=== PATIENT | male | born 1955 | race Caucasian/White ===

== ENCOUNTER → 2016-10-27 | Outpatient (CLI) | payer BC, OTHER ==
[~2016-10-27] VITALS: Ht 177.8 cm; Wt 97.5 kg
[~2016-10-27] MED LIST: ASPIR 8181 MG PO; CRESTOR10 MG PO; FLOMAX PO; NEURONTIN 300300 M1 PO; PERCOCET 5-3251 EACH PO; PHENERGAN25 MG RE
--- NOTE | ~2016-10-27 | HPC ---
[facility] [place] [address] PAIN MANAGEMENT CONSULTATION Name: AURELIA MOHR Room #: REG DELMY Tillman#: [id number] Admission: 10/27/16 Attend Phys: Antoni Silva DO Discharge: Date of : 59 Report #: [id number] THIS REPORT FOR: //name// CC: Peter Silva DATE OF SERVICE: 10/27/2016 The patient is a very pleasant 61-year-old gentleman seen in consultation at request of Dr. Swapna Cage DPM for evaluation and assistance with management of pain in left ankle. The patient notes that he developed pain in his left foot last summer. Progressed to have surgery 08/07/2016 (bunionectomy with soft tissue correction and osteotomy of the first metatarsal). While surgical site has healed nicely, he is left with fairly significant "nerve pain" medial aspect of the foot and ankle. Weightbearing is okay, but he has light touch allodynia and hyperpathia about the medial aspect and dorsum of the left foot. He describes steady, periodic, burning, shooting, throbbing, sharp pain, he rates anywhere from 4-8 on a 0-10 visual analog scale. Currently, he is wearing an orthotic device, a Velcro shoe as shoes encompassing the distal aspect of his foot significantly exacerbate pain. He notes the pain is exacerbated with any and all activity or contact on his foot. He notes he gets some relief with elevation of the foot and using a topical compound. The patient incidentally notes that he had had prior surgery for similar issue on the right foot in 2003 with no sequelae. REVIEW OF SYSTEMS: Complete review of systems attached to chart and gone over with the patient. He is . Does not smoke or drink alcohol to excess. History of dyslipidemia for which he has been prescribed rosuvastatin. He has had a history of renal lithiasis, was on Flomax for a short period, though he is not on it presently. Aforementioned foot surgery as noted above along with the left inguinal herniorrhaphy in 1967. 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 He has continued to work despite pain and has to travel at the end of this week. Pain impact score averages 24/70. PHYSICAL EXAMINATION: Reveals a 5-foot 10-inch, 215-pound gentleman, BMI is 30.8 kilograms per meter squared. Blood pressure is 141/83, pulse 78, respirations 16. Cranial nerves 2-12 are grossly intact. Pupils equal, reactive to light and accommodation. Extraocular muscles are intact. There is no nystagmus or lateral gaze deviation. Thyroid is modestly enlarged, no nodules are noted. Cervical range of motion is full. Upper extremity strength is preserved. Heart is regular and rhythmical without murmur. Lungs are clear [address] [address] PAIN MANAGEMENT CONSULTATION Name: AURELIA MOHR Room #: REG [facility] Layne#: [id number] Admission: 10/27/16 Attend Phys: Antoni Silva DO Discharge: Date of : 59 Report #: [id number] to auscultation. Abdomen is unremarkable. Rises from chair using armrest. Has a modestly antalgic gait favoring the left foot. Lower extremity strength to hip flexion, lower extremity extension and dorsiflexion, plantarflexion is all good, though he has pain with resistance and dorsiflexion on the left side. He has a well healed surgical scar over the dorsum of the left proximal metatarsal-tarsal joint. Does have hyperpathia, allodynia dorsum of the foot, medial aspect going up to the ankle. Peripheral pulses are faint but present. Capillary bautista is good. The skin integument feels warm. It is pink. No obvious infection, erythema, rubor or swelling is noted. Limited range of motion in the joint as expected status post prior surgery. Selective hyperpathia and allodynia is noted. Homans is negative. ASSESSMENT: Neuropathic pain, left lower extremity status post left bunionectomy with soft tissue correction, osteotomy of the first metatarsal in an otherwise healthy 61-year-old. RECOMMENDATION: Long discussion today about therapeutic options. Appears to have neuropathic pain component. We have elected to start a calcium channel membrane stabilizing agent (gabapentin 300 mg at bedtime, titrating a dose up to 1 tablet in the morning and 2 at night, total daily dose of 900 mg). We will see patient back in 3 weeks for reevaluation. We briefly discussed consideration for lumbar sympathetic block on the off chance that this could represent somewhat atypical presentation of CRPS. Hopefully, simply neuropathic pain due to local nerve irritation and may consider adding a sodium channel membrane stabilizing agent (Tegretol? Trileptal?). Thank you for allowing me to participate in the patient's care. I will keep you abreast of his progress. By: 1129 [id number] Antoni Silva, DO /nt
[2016-10-27 08:56] VITALS: BP 141/83
== END | disposition home or self-care (01) ==
LOC: PAIN 06:48
DX: M79.662 Pain in left lower leg (principal); Z98.890 Other specified postprocedural states

== ENCOUNTER → 2016-11-21 | Outpatient (CLI) | payer BC, OTHER ==
[~2016-11-21] VITALS: Ht 177.8 cm; Wt 98.9 kg
[~2016-11-21] MED LIST changes: +HYDROCODONE-APA1 TA1 PO
--- NOTE | ~2016-11-21 | HPC ---
[facility] [place] [address] PAIN MANAGEMENT CONSULTATION Name: AURELIA MOHR Room #: REG DELMY Layne#: [id number] Admission: 11/21/16 Attend Phys: Antoni Silva DO Discharge: Date of : 59 Report #: [id number] THIS REPORT FOR: //name// CC: Peter Silva SUBJECTIVE: The patient is a very unfortunate 61-year-old gentleman referred by Dr. Ramon Cage for left ankle pain, neuropathic pain component, RSD/CRPS type pain. Seen 1 time, 10/27/2016, started the patient on gabapentin. We talked about a lumbar sympathetic block. I have spoken to Dr. Cage in the interim. Dr. Cage was concerned that he does have some either deeper peroneal nerve mononeuropathy versus sympathetically mediated pain. Returns to pain clinic today, noting pain remains problematic. He notes that he has burning dysesthesia in the left ankle and foot radiating up to about mid-benton. Describes burning, shooting, throbbing sensation. He is unable to wear a foot due to swelling and light touch allodynia. PHYSICAL EXAMINATION: Otherwise unchanged from presentation. GENERAL: A 61-year-old gentleman with BMI noted on EMR. VITAL SIGNS: Stable. EXTREMITIES: Lower extremity strength is good down to the left knee. Dorsiflexion, plantar flexion is modestly limited with exacerbation of pain. Light touch allodynia and hyperpathia from about the mid lower leg down on the left side. Pulses are good. ASSESSMENT: Left ankle pain, neuropathic pain, complex regional pain syndrome requiring complex medication management. RECOMMENDATION: Long discussion with the patient today about therapeutic options. 1. Lumbar sympathetic block under fluoroscopy today. 2. Continue gabapentin, I did offer the patient prescription for hydrocodone 7.5/325, limit 30 tablets, direction one tablet q.4-6 hours as needed for pain. The patient cautioned about daytime somnolence, mental acuity changes, constipation. 3. Follow up in 1 week. If he gets good incremental relief, we can consider repeating the injection. If he gets only transient relief, we may consider addition of a sodium channel membrane stabilizing agent (Trileptal?) as a synergistic agent with the gabapentin. Thank you for allowing me to participate in the patient's care. He does require complex medication management for a rather significant pain component. ASSESSMENT: Complex regional pain syndrome, left lower extremity. [address] [address] PAIN MANAGEMENT CONSULTATION Name: AURELIA MOHR Room #: REG CLI Layne#: [id number] Admission: 11/21/16 Attend Phys: Antoni Silva DO Discharge: Date of : 59 Report #: [id number] PROCEDURE: Lumbar sympathetic block under fluoroscopy. DESCRIPTION OF PROCEDURE: After written informed consent was obtained, the patient was taken to the fluoroscopy suite, placed in prone position. After sterile prep and drape, a skin wheal with lidocaine was raised. A 22-gauge 6-inch Chiba needle was placed from a left paramedian approach to contact the mid portion of L2 vertebral body in the left. Under triplanar fluoroscopy, the needle was then gently advanced to position slightly anterior to the anterior-most portion of the vertebral body. AP and lateral projections showed the needle to be located about the left lateral third of the AP projection. Negative aspiration was accomplished. Then, 1 mL of Omnipaque was injected, which showed spread within the sympathetic gutter. This was followed with 4 mL of 0.5% preservative-free bupivacaine plus 4 mL of 1.5% preservative-free Xylocaine with 1:200,000 epinephrine plus 40 mg triamcinolone. Needle was removed. The area was cleansed, Band-Aids applied. The patient monitored for an appropriate period of time, discharged in good and stable condition, noting some incremental improvement in his baseline pain. <ELECTRONICALLY SIGNED> By: Antoni Silva DO 11/26/16 0758 1227 Antoni Silva DO /nt
[2016-11-21 08:53] VITALS: BP 133/74
== END ==
LOC: PAIN 07:00
DX: G90.522 Complex regional pain syndrome I of left lower limb (principal)

== ENCOUNTER → 2016-11-28 | Outpatient (CLI) | payer BC, OTHER ==
[~2016-11-28] VITALS: Ht 177.8 cm; Wt 98.7 kg
[~2016-11-28] MED LIST changes: +TRILEPTAL150 MG PO
--- NOTE | ~2016-11-28 | HPC ---
[facility] [place] [address] PAIN MANAGEMENT CONSULTATION Name: AURELIA MOHR Room #: REG DELMY Layne#: [id number] Admission: 11/28/16 Attend Phys: Antoni Silva DO Discharge: Date of : 59 Report #: [id number] THIS REPORT FOR: //name// CC: Peter Silva HISTORY OF PRESENT ILLNESS: The patient is a pleasant 61-year-old gentleman referred by Dr. Muller for left ankle neuropathic pain. He was initially seen 10/27/2016. He was started on gabapentin. Follows up 11/21/2016 with ongoing neuropathic pain. Long discussion at that time. We proceeded with a lumbar sympathetic block. Continue gabapentin, unchanged. I did provide a short course of hydrocodone 7.5/325, limit 30 tablets with directions to be used 1 q. 4-6 hours. He has used about 5 tablets in the interval since we last saw him. He notes dramatic improvement following the sympathetic block, notes about 75% improvement for 2-3 days. Clearly, this points to a component of sympathetically mediated pain. He returns to the pain clinic today. Again, we had a prolonged visit from 10:15-10:40. He is still wearing surgical shoe on the left side. He states when he tries to wear a "regular shoe" has increasing pain. He has had some swelling, but this seems to be coming down. He has a tingling sensation in the foot, exacerbated with standing coming up the calf to the knee. States he has a feeling of "swelling" in the lower extremities though there is no swelling perceptible. Rates pain at 2-3 on a 0-10 visual analog scale. Describes throbbing, sharp, aching, burning pain that is exacerbated with any or all activity. PHYSICAL EXAMINATION: Was unchanged, 61-year-old gentleman, BMI is 31.2 kilograms per meter squared. Vital signs stable as noted on the EMR. Does not use tobacco products. Again, he is wearing the Velcro flat soled surgical shoe on the left foot. He does have normal 2-point discrimination in the lower leg that is symmetric. Range of motion of the left ankle is modestly limited. Subjective pain in the foot. There is no ballottable edema or swelling is noted. Mild hyperpathia and allodynia. ASSESSMENT: Neuropathic pain, CRPS type 2, left lower extremity. RECOMMENDATION: Long discussion with the patient today about therapeutic options. He would benefit from a repeat lumbar sympathetic block, the treatment algorithm for CRPS typically includes a series of lumbar sympathetic blocks in short order, i.e. every 3-4 days. Often times, there is a significant incremental relief obtained long-term with this. Nevro; however, has a generic policy noting "no more than one injection in any 30-day period." We will seek an authorization from [employer] [facility] to repeat the injection earlier as warranted. [address] [address] PAIN MANAGEMENT CONSULTATION Name: AURELIA MOHR Room #: REG DELMY Tillman#: [id number] Admission: 11/28/16 Attend Phys: Antoni Silva DO Discharge: Date of : 59 Report #: [id number] Today, however, we elected to continue gabapentin, strongly encouraged range of motion activity. I provided the patient with a prescription for Trileptal 150 mg to start if pain increases with increasing physical activity. A 150 mg tablets, dispensed 90, directions one at bedtime for 2 nights, two at bedtime for 2 nights with a target dose of 1 in the morning and 2 at night, concurrent with his gabapentin. We will make an appointment to see the patient back for consideration for repeat lumbar sympathetic block at earliest possible date. <ELECTRONICALLY SIGNED> By: Antoni Silva DO 12/01/16 1118 1156 [id number] Antoni Silva DO /nt
[2016-11-28 10:14] VITALS: BP 141/74
== END | disposition home or self-care (01) ==
LOC: PAIN 05:45
DX: G90.522 Complex regional pain syndrome I of left lower limb (principal)

== ENCOUNTER → 2016-12-22 | Outpatient (CLI) | payer BC, OTHER ==
[~2016-12-22] VITALS: Ht 177.8 cm; Wt 97.6 kg
--- NOTE | ~2016-12-22 | HPC ---
[facility] [place] [address] PAIN MANAGEMENT CONSULTATION Name: AURELIA MOHR Room #: REG SIMONHortencia Tillman#: [id number] Admission: 12/22/16 Attend Phys: Antoni Silva DO Discharge: Date of : 59 Report #: [id number] THIS REPORT FOR: //name// CC: Peter Silva DATE OF SERVICE: 12/22/2016 HISTORY: The patient is a 61-year-old gentleman initially seen in consultation on 10/27/2016, diagnosed with left lower extremity neuropathic pain, possible component of CRPS. The patient was given a lumbar sympathetic block at presentation with good yet transient relief of symptoms. Started the patient on membrane stabilizing agents, titrating gabapentin 300 mg up to 1 in the morning and 2 at night and recently started a sodium channel membrane stabilizing agent, Trileptal, titrating 150 mg tablet up to 1 in the morning and 2 at night. He just started 1 in the morning this week. He returns to Pain Clinic today noting left foot still feels swollen. He has been riding a stationary bike once or twice a week. He does cut his lawn weekly; however he still has to wear "flip flops," as trying to get his left foot into his shoe is difficult. There is some osseous hypertrophy about the medial aspect of the distal foot, primarily at the great toe metatarsal tarsal junction. Flexion and extension is limited. However, he is a little better with dorsiflexion which before had caused extensive exacerbation of pain. He rates his pain at 2-3 on a 0-10 visual analog scale. Skin is generally intact. The nail is black (the patient stubbed his toe about 4 weeks ago). Skin, integument is generally intact. ASSESSMENT: Neuropathic pain, left lower extremity, component of complex regional pain syndrome. RECOMMENDATIONS: I had discussion with the patient today about therapeutic options. Suggested that he continue to take the Trileptal and gabapentin tablets 1 in the morning and 2 at night for each throughout the summer and then we will start weaning the tablets down in 2-3 months. If symptoms continue, we will consider repeat lumbar sympathetic block in consideration for moving forward with spinal cord stimulator trial. Presently, however, no interventional therapy is required. He seems to be improving. He has a followup appointment with Dr. Meyers, I believe later this week. I will be happy to see him on an as needed basis. <ELECTRONICALLY SIGNED> By: Antoni Silva DO 12/24/16 1252 [id number] [id number] Antoni Silva DO /nt
[2016-12-22 11:04] VITALS: BP 145/85
== END ==
LOC: PAIN 06:43
DX: G62.9 Polyneuropathy, unspecified (principal); M19.042 Primary osteoarthritis, left hand; M19.041 Primary osteoarthritis, right hand; M19.012 Primary osteoarthritis, left shoulder; M19.011 Primary osteoarthritis, right shoulder; Z79.899 Other long term (current) drug therapy

== ENCOUNTER → 2017-04-09 | Outpatient (CLI) | payer BC, OTHER ==
[~2017-04-09] VITALS: Ht 177.8 cm; Wt 99.4 kg
[~2017-04-09] MED LIST changes: +NORCO 7.5-3251 EACH PO
--- NOTE | ~2017-04-09 | HPC ---
[facility] [place] [address] PAIN MANAGEMENT CONSULTATION Name: AURELIA MOHR Room #: REG DELMY Tillman#: [id number] Admission: 04/09/17 Attend Phys: Antoni Silva DO Discharge: Date of : 59 Report #: [id number] THIS REPORT FOR: //name// CC: Peter Silva HISTORY OF PRESENT ILLNESS: The patient is a pleasant 61-year-old gentleman suffering with left lower extremity neuropathic pain, CRPS, requiring high-risk complex medication management. The patient was initially seen in our clinic on 10/27/2016. He had surgery on his foot on 08/07/2016. Surgery ostensibly healed nicely, but he is left with ongoing light touch allodynia and hyperpathia. He has had a series of lumbar sympathetic blocks with modest improvement in his symptoms. Ultimately, he has been on membrane-stabilizing agents including gabapentin 300 mg 1 in the morning and 2 at night and Trileptal 150 mg titrated up to 1 in the morning and 2 at night. He uses hydrocodone 7.5/325 very infrequently. Last visit was 12/22/2016. The patient still had swollen left foot with allodynia and hyperpathia. He is unable to wear a shoe due to significant swelling in that foot. He returns to pain clinic today. In the interval since we last saw him, unfortunately he did have a mirror dropped on his left benton with exacerbation of some pain and did trip and fracture the toe on his left foot with significant exacerbation of pain. He returns today noting his pain is a 5-6 on a VAS. Describes throbbing and hurting pain that is affected by weightbearing. He is wearing a boot on his left foot today. PHYSICAL EXAMINATION: Shows a 61-year-old gentleman. BMI is 31.5 kilograms per meter squared. Vital signs show modest hypertension at 163/101, pulse of 107, respirations of 20. He is alert and oriented to person, place and time and judged to be a reasonable historian. Upper extremity strength is preserved. He has been wearing a walking-type post-surgical boot on the left foot. Does have hyperpathia, allodynia and erythema with some swelling around that foot. Negative Homans. Gait is antalgic. Lower extremity strength is otherwise symmetric to hip flexion and lower extremity extension and flexion. ASSESSMENT: Neuropathic pain in the left lower extremity recalcitrant to membrane-stabilizing agents including gabapentin and Trileptal, status post a series of lumbar sympathetic blocks with only marginal improvement. Ongoing pain, approaching 1 year this July. We talked today about therapeutic options moving forward. Ultimately, we elected to continue gabapentin and Trileptal unchanged, I did renew some hydrocodone 7.5/325, limit to 75 tablets to take one tablet 2-3 times a day, typically takes this on a nondaily basis. Cautioned about daytime somnolence, mental acuity changes, constipation and habituation issues with the routine use. [address] [address] PAIN MANAGEMENT CONSULTATION Name: AURELIA MOHR Room #: REG DELMY Tillman#: [id number] Admission: 04/09/17 Attend Phys: Antoni Silva DO Discharge: Date of : 59 Report #: [id number] We did at length talk about a spinal cord stimulator today, as we have in the past. He is actually well versed with this device. His mother had a Nevro spinal cord stimulator implanted last week. He was helping her with some reprogramming the device yesterday. We talked about postulated mechanism of action. Again, reasonably well-documented success rate with RSD-type pain. The patient has failed conservative therapies with his left lower extremity pain that is quite disabling and rate limiting. He is loathe to use higher dose opiates. Current membrane-stabilizing agents while affording some improvement do not give him enough relief to really be as functional and active as he would desire. Today, the patient was given Nevro spinal cord stimulator information package and also contact information for a psychologist as required by most third democrat payers. Ultimately, the patient was seen for prolonged visit from 1318 to 1345. Greater than 50% of the 25+ minute visit was spent counseling the patient. The patient was discharged in good and stable condition today. <ELECTRONICALLY SIGNED> By: Antoni Silva DO 04/13/17 0840 1635 1617 Antoni Silva DO /nt
[2017-04-09 13:14] VITALS: BP 163/101
== END | disposition home or self-care (01) ==
LOC: PAIN 06:38
DX: G62.9 Polyneuropathy, unspecified (principal); G90.522 Complex regional pain syndrome I of left lower limb; Z68.31 Body mass index [BMI] 31.0-31.9, adult; I10 Essential (primary) hypertension; Z98.890 Other specified postprocedural states